=== PATIENT | male | born 1930 | race Caucasian/White ===

== ENCOUNTER → 2017-03-02 | Outpatient (REF) | payer OTHER ==
[2017-03-02 13:38] LABS: ALBUMIN 3.6 GM/DL (3.2-5.2); ALBUMIN/GLOBULIN RATIO 1.2 (1.00-1.93); BILIRUBIN,TOTAL 0.7 MG/DL (0.2-1.0); CALCIUM LEVEL 8.4 MG/DL (8.8-10.2); CREATININE FOR GFR 2.08 MG/DL (0.70-1.30); GLOMERULAR FILTRATION RATE 32.5 (>35); TOTAL PROTEIN 6.6 GM/DL (6.4-8.2)
[2017-03-02 13:42] LABS: POTASSIUM SERUM 5.4 MEQ/L (3.5-5.1)
== END ==
LOC: M SFHCCLAY 07:59
PROVIDERS: ATTEND Family Medicine
DX: E11.29 Type 2 diabetes mellitus with other diabetic kidney complication (principal)

== ENCOUNTER → 2017-03-08 | Outpatient (REF) | payer OTHER | LOC: M SFHCCLAY 13:15 | PROVIDERS: ATTEND Family Medicine | DX: R19.7 Diarrhea, unspecified (principal); Z53.8 Procedure and treatment not carried out for other reasons ==

== ENCOUNTER → 2017-03-10 | Outpatient (REF) | payer OTHER | LOC: M SFHCCLAY 16:22 | PROVIDERS: ATTEND Family Medicine | DX: R19.7 Diarrhea, unspecified (principal) ==

== ENCOUNTER → 2017-08-30 | Outpatient (REF) | payer OTHER ==
[2017-08-30 12:45] LABS: ALBUMIN 3.8 GM/DL (3.2-5.2); ALBUMIN/GLOBULIN RATIO 1.19 (1.00-1.93); BILIRUBIN,TOTAL 0.6 MG/DL (0.2-1.0); CALCIUM LEVEL 8.8 MG/DL (8.8-10.2); CREATININE FOR GFR 2.33 MG/DL (0.70-1.30); GLOMERULAR FILTRATION RATE 28.5 (>35)
[2017-08-30 12:47] LABS: POTASSIUM SERUM 5.2 MEQ/L (3.5-5.1)
== END ==
LOC: M SFHCCLAY 08:32
PROVIDERS: ATTEND Family Medicine
DX: E11.29 Type 2 diabetes mellitus with other diabetic kidney complication (principal)

== ENCOUNTER → 2018-09-08 | Outpatient (REF) | payer OTHER ==
[2018-09-08 12:22] LABS: ESTIMATED AVERAGE GLUCOSE 171 MG/DL (60-110); HEMOGLOBIN A1c 7.6 %
[2018-09-08 16:06] LABS: CHOLESTEROL LEVEL 114 MG/DL (<200); CHOLESTEROL RISK RATIO 2.375 (<5); HDL CHOLESTEROL 48 MG/DL (>40); LDL CHOLESTEROL 47 MG/DL (<100); NON-HDL-C 66 MG/DL; TRIGLYCERIDES LEVEL 96 MG/DL (<150)
== END ==
LOC: M SFHCCLAY 08:55
DX: E11.29 Type 2 diabetes mellitus with other diabetic kidney complication (principal)
CPT/HCPCS: 83036

== ENCOUNTER → 2018-12-25 | Outpatient (REF) | payer MEDICARE ==
[2018-12-25 18:44] LABS: HEMOGLOBIN A1c 8.9 %
[2018-12-25 18:46] LABS: CHOLESTEROL RISK RATIO 2.434 (<5)
== END ==
LOC: M SFHCCLAY 13:18
PROVIDERS: ATTEND Family Medicine
DX: E11.29 Type 2 diabetes mellitus with other diabetic kidney complication (principal); E11.22 Type 2 diabetes mellitus with diabetic chronic kidney disease; E11.3293 Type 2 diabetes mellitus with mild nonproliferative diabetic retinopathy without macular edema, bilateral; N18.4 Chronic kidney disease, stage 4 (severe); Z79.4 Long term (current) use of insulin
CPT/HCPCS: 80061; 83036; G0463

== ENCOUNTER → 2019-05-08 | Outpatient (REF) | payer MEDICARE ==
[2019-05-08 11:42] LABS: BASO # 0.1 10^3/uL (0.0-0.2); BASO % 0.9 % (0.0-1.0); EOS # 0.4 10^3/uL (0.0-0.50); EOS % 4.4 % (0.0-3.0); HEMATOCRIT 36.1 % (42.0-52.0); LYMPH # 3.2 10^3/uL (1.5-4.5); LYMPH % 38.6 % (24.0-44.0); MEAN CORPUSCULAR HEMOGLOBIN 27.6 pg (27.0-33.0); MEAN CORPUSCULAR HGB CONC 30.5 g/dl (32.0-36.5); MEAN CORPUSCULAR VOLUME 90.5 fl (80.0-96.0); MONO # 0.9 10^3/uL (0.0-0.8); MONO % 10.8 % (0.0-5.0); NEUTROPHILS # 3.7 10^3/uL (1.8-7.7); NEUTROPHILS % 45.2 % (36.0-66.0); PLATELET COUNT, AUTOMATED 197 10^3/uL (150-450); RED BLOOD COUNT 3.99 10^6/uL (4.30-6.10); WHITE BLOOD COUNT 8.2 10^3/uL (4.0-10.0)
[2019-05-08 12:45] LABS: ALBUMIN 3.6 GM/DL (3.2-5.2); BILIRUBIN,TOTAL 0.6 MG/DL (0.2-1.0); CALCIUM LEVEL 8.8 MG/DL (8.8-10.2); CREATININE FOR GFR 2.97 MG/DL (0.70-1.30); GLOMERULAR FILTRATION RATE 21.4 (>35); POTASSIUM SERUM 4.9 MEQ/L (3.5-5.1); TOTAL PROTEIN 6.8 GM/DL (6.4-8.2)
[2019-05-08 14:29] LABS: HEMOGLOBIN A1c 8.6 %
== END ==
LOC: M SFHCCLAY 08:34
PROVIDERS: ATTEND Family Medicine
DX: I10 Essential (primary) hypertension (principal); E11.29 Type 2 diabetes mellitus with other diabetic kidney complication

== ENCOUNTER → 2019-09-11 | Outpatient (REF) | payer MEDICARE ==
[2019-09-12 12:00] LABS: HEMOGLOBIN A1c 9.1 %
== END ==
LOC: M SFHCCLAY 15:20
PROVIDERS: ATTEND Family Medicine
DX: E11.29 Type 2 diabetes mellitus with other diabetic kidney complication (principal); Z23 Encounter for immunization
CPT/HCPCS: 83036; 90682; 90732; G0008; G0009; G0463

== ENCOUNTER → 2020-01-24 | Outpatient (REF) | payer MEDICARE ==
[2020-01-24 17:17] LABS: CHOLESTEROL RISK RATIO 2.885 (<5)
[2020-01-24 18:12] LABS: HEMOGLOBIN A1c 9.2 %
== END ==
LOC: M SFHCCLAY 10:16
PROVIDERS: ATTEND Family Medicine
DX: E11.29 Type 2 diabetes mellitus with other diabetic kidney complication (principal); E78.2 Mixed hyperlipidemia

== ENCOUNTER → 2020-04-29 | Outpatient (REF) | payer MEDICARE ==
[2020-04-30 13:55] LABS: ALBUMIN 3.6 GM/DL (3.2-5.2); BILIRUBIN,TOTAL 0.6 MG/DL (0.2-1.0); CALCIUM LEVEL 8.8 MG/DL (8.8-10.2); CREATININE FOR GFR 2.59 MG/DL (0.70-1.30); POTASSIUM SERUM 6.7 MEQ/L (3.5-5.1); TOTAL PROTEIN 6.5 GM/DL (6.4-8.2)
[2020-04-30 15:43] LABS: HEMOGLOBIN A1c 9.4 %
== END ==
LOC: M SFHCCLAY 15:26
PROVIDERS: ATTEND Family Medicine
DX: E11.29 Type 2 diabetes mellitus with other diabetic kidney complication (principal); N18.4 Chronic kidney disease, stage 4 (severe)
CPT/HCPCS: 80053; 83036; G0463

== ENCOUNTER → 2020-08-26 | Outpatient (REF) | payer MEDICARE ==
[2020-08-26 16:30] LABS: CALCIUM LEVEL 8.9 MG/DL (8.8-10.2); CREATININE FOR GFR 2.33 MG/DL (0.70-1.30); GLOMERULAR FILTRATION RATE 28.3 (>35); POTASSIUM SERUM 5.2 MEQ/L (3.5-5.1)
[2020-08-26 16:33] LABS: HEMOGLOBIN A1c 8.2 %
== END ==
LOC: M SFHCCLAY 11:18
PROVIDERS: ATTEND Family Medicine
DX: E11.29 Type 2 diabetes mellitus with other diabetic kidney complication (principal); Z23 Encounter for immunization
CPT/HCPCS: 80048; 83036; 90682; G0008; G0463

== ENCOUNTER → 2020-12-29 | Outpatient (REF) | payer MEDICARE ==
[2020-12-29 16:34] LABS: ALBUMIN 3.3 GM/DL (3.2-5.2); BILIRUBIN,TOTAL 0.3 MG/DL (0.2-1.0); CHOLESTEROL RISK RATIO 2.511 (<5); CREATININE FOR GFR 2.6 MG/DL (0.70-1.30); GLOMERULAR FILTRATION RATE 24.9 (>35); POTASSIUM SERUM 4.8 MEQ/L (3.5-5.1)
[2020-12-29 16:45] LABS: HEMOGLOBIN A1c 8.9 %
== END ==
LOC: M SFHCCLAY 13:26
PROVIDERS: ATTEND Family Medicine
DX: E11.29 Type 2 diabetes mellitus with other diabetic kidney complication (principal)
CPT/HCPCS: 80053; 80061; 83036; G0463

== ENCOUNTER → 2021-05-05 | Outpatient (REF) | payer MEDICARE ==
[2021-05-06 12:50] LABS: ALBUMIN 3.6 GM/DL (3.2-5.2); BILIRUBIN,TOTAL 0.4 MG/DL (0.2-1.0); CALCIUM LEVEL 8.8 MG/DL (8.8-10.2); CREATININE FOR GFR 2.65 MG/DL (0.70-1.30); GLOMERULAR FILTRATION RATE 24.3 (>35); POTASSIUM SERUM 5.7 MEQ/L (3.5-5.1); TOTAL PROTEIN 6.3 GM/DL (6.4-8.2)
== END ==
LOC: M SFHCCLAY 15:17
PROVIDERS: ATTEND Family Medicine
DX: E11.29 Type 2 diabetes mellitus with other diabetic kidney complication (principal)
CPT/HCPCS: 80053; 83036; G0463

== ENCOUNTER → 2021-08-13 | Outpatient (REF) | payer MEDICARE ==
[2021-08-13 18:13] LABS: PERCENT SATURATION 34.3 % (19.7-50.0)
== END ==
LOC: M LAB REF 17:24
PROVIDERS: ATTEND Nurse Practitioner Family
DX: D50.9 Iron deficiency anemia, unspecified (principal)